=== PATIENT | female | born 1995 | race Two or more races ===

== ENCOUNTER 2023-10-04 17:52 | Emergency (ER) | payer OTHER ==
[~2023-10-04] VITALS: Ht 162.6 cm; Wt 75.6 kg
[2023-10-04] MEDS ORDERED: IBUP1TAB5 PO (20:22)
[2023-10-04] MEDS ORDERED: MUPI2OIN2 EX (20:22)
[2023-10-04] MEDS ORDERED: AUG875T PO (20:22)
[2023-10-04] MEDS: NEOMYCIN-BACITRACIN-POLYM UNITDOSE PKG TOP OINT TOP ONE (20:51)
[2023-10-04] MEDS: AMOXICILLIN/CLAVUL 875 MG TAB PO ONE (20:51)
[2023-10-04] MEDS: TETANUS-DIPTH-ACEL PERTUSSIS 0.5ML SYR Tdap IM ONE (20:52)
[2023-10-04 21:10] VITALS: BP 121/78; PULSE 76; RESP 16; TEMP 98; O2SAT 98
== END 2023-10-04 21:10 | disposition home or self-care (01) ==
LOC: ER 17:52
DX: S81.831A Puncture wound without foreign body, right lower leg, initial encounter (principal); Z79.1 Long term (current) use of non-steroidal anti-inflammatories (NSAID); Z79.2 Long term (current) use of antibiotics; Z79.899 Other long term (current) drug therapy; W54.0XXA Bitten by dog, initial encounter; Y93.89 Activity, other specified; Y92.89 Other specified places as the place of occurrence of the external cause; Y99.8 Other external cause status
CPT/HCPCS: 90471; 90715